=== PATIENT | female | born 1990 | race Caucasian/White ===

== ENCOUNTER 2021-12-31 03:15 | Inpatient (IN) ==
[2021-12-31] MEDS ORDERED: OXYTOCIN 30 UNITS/500 ML BAG IV PRN ×3 (03:46→11:08)
[2021-12-31 04:05] LABS: Hematocrit (blood only) 34.4 % (34.1-44.9); Hemoglobin 11.4 g/dl (12.0-16.0); Mean Corpuscular Hemoglobin 27.5 pg (25.0-34.0); Mean Corpuscular Hgb Conc 33.1 g/dL (32.0-36.0); Mean Corpuscular Volume 82.9 fL (80.0-100.0); Mean Platelet Volume 9.5 fL (9.4-12.3); Platelet Count 259 K/uL (130-400); RDW Standard Deviation 41.8 fL (36.4-46.3); Red Blood Count 4.15 M/uL (3.93-5.22); White Blood Count 10.12 K/ul (4.8-10.8)
--- NOTE | 2021-12-31 04:20 | History & Physical Report ---
Date of Service December 31, 2021 Assessment & Plan (1) Encounter for supervision of normal intrauterine in primigravida, antepartum: Plan: Admit to L&D, EFM/toco. Labs/COVID swab. She would prefer to ambulate to see if ctx/labor picks up. Agreeable to pitocin if no labor by 8:30a. Glucose on admission, then Q1h while in active labor. Admission and Anticipated Discharge Date Admission Date: December 31, 2021 History of Present Illness Chief Complaint: labor Primary Care Provider: NO PCP 31yo @ 38 0, presents after ROM for clear fluid at 2:30a. Occ ctx. +FM, no vaginal bleeding. with J&J COVID vaccinegiven on 10/17/20 (+) COVID 05/18 GDM w/28wk glucola *Begin monthly AC Us's Hypothyroid *Check TFTs Q4wks Posterior placenta previa--> RESOLVED -No VB since 16wk -Rescan at 32wk RESOLVED at 34 weeks Allergies Allergy/AdvReac Type Severity Reaction Status Date / Time No Known Allergies Allergy Verified 12/27/21 09:12 Home Medications Medication Instructions Recorded Confirmed Type prenat.vits,juanito,flh-ebvi-genbm 1 tab PO DAILY 06/07/21 12/31/21 History acetone (urine) test (Ketone Urine #50 ea 11/09/21 12/27/21 Rx Test strips) blood sugar diagnostic (OneTouch #150 ea 11/09/21 12/27/21 Rx Verio test strips) blood-glucose meter (OneTouch #1 ea 11/09/21 12/27/21 Rx Verio Meter) lancets 33 gauge (OneTouch Delica #150 ea 11/09/21 12/27/21 Rx Lancets) ferrous sulfate 325 mg (65 mg 65 mg PO Q OTHER DAY 12/31/21 12/31/21 History iron) tablet (iron) levothyroxine 88 mcg tablet 75 mcg PO DAILY 12/31/21 12/31/21 History Patient History Medical History Bleeding in early Chicken pox Colon polyp Depression IBS (irritable bowel syndrome) Ovarian anomaly Fibroids Surgical History [place] teeth extracted Family History Grandmother (Maternal) Colorectal cancer Colonic polyp Grandfather (Paternal) Colorectal cancer Colonic polyp Mother Colonic polyp Hypertension Migraines Denies family history of Ovarian cancer Breast cancer Lung cancer Social History Smoking Status: Former smoker Hx Alcohol Use: No Hx Substance Use: No Preferred Language: [place] Citizen Communication Ability: Effective marital status: Single marital status details: Alfred Georges (40) [phone] Current Living Situation: Significant Other Current Living Situation Comment: FOB and 2 cats (FOB changing litter) current occupational status: employed current occupation: [employer] Feels Safe at Home: Yes Review of Systems All systems reviewed & are unremarkable except as noted in HPI & below Physical Exam Physical Exam: FHT Cat 1 [place] occasional SVE 390/-1 Grossly ruptured clear fluid, +nitrizine Constitutional: WD/WN, vitals as above Respiratory: normal respiratory effort, lungs clear to auscultation no respiratory distress Cardiovascular: Rate/Rhythm: regular rate and regular rhythm Gastrointestinal (Abdomen): Inspection/Auscultation: abdomen normal to inspection Percussion/Palpation: abdomen soft; abdomen nontender Gravid. No s/s chorio or abruption. Skin: no rashes, warm and dry Psychiatric: A+Ox3, euthymic affect Results & Data ([facility]) Vital Signs (Past 12 Hours) Vital Signs Temp Pulse Resp BP 12/31/21 03:33 37.4 C 85 18 130/75 Coding Level of Care Code None Diagnoses Encounter for supervision of normal intrauterine in primigravida, antepartum Z34.00
[2021-12-31] MEDS: LACTATED RINGER'S 1,000 ML IV PRN ×2 (06:00→07:01)
[2021-12-31] MEDS ORDERED: ePHEDrine sulfate 50 MG/ML AMP ONE (06:06)
[2021-12-31] MEDS ORDERED: SODIUM CHLORIDE 0.9% INJ 10 ML VIAL ONE (06:06)
[2021-12-31] MEDS ORDERED: fentaNYL citrate 100 MCG/2 ML VIAL ONE (06:06)
[2021-12-31] MEDS ORDERED: BUPIVACAINE 0.25% 30 ML VIAL ONE (06:06)
[2021-12-31] MEDS ORDERED: fentaNYL 2MCG/ML ROPIVACAINE 1.25MG/ML 100 ML BAG EPI ONE (06:07)
[2021-12-31] MEDS ORDERED: LIDOCAINE 2%/EPINEPHRINE 1:200,000 20 ML SDV ONE (06:07)
[2021-12-31] MEDS ORDERED: NALBUPHINE HCL INJ 10 MG/ML AMP IV PRN (06:24)
[2021-12-31] MEDS ORDERED: diphenhydrAMINE 50 MG/ML VIAL IV PRN (06:24)
[2021-12-31] MEDS ORDERED: NALOXONE HCL 0.4 MG/1 ML VIAL/CARP IV PRN (06:24)
[2021-12-31] MEDS ORDERED: ePHEDrine sulfate 50 MG/ML AMP IV PRN (06:24)
[2021-12-31] MEDS ORDERED: fentaNYL 2MCG/ML ROPIVACAINE 1.25MG/ML 100 ML BAG EPI PRN (06:24)
[2021-12-31] MEDS ORDERED: NALOXONE HCL 1 MG in SODIUM CHLORIDE 0.9% 1000ML 1,000 ML IV PRN (06:24)
[2021-12-31] MEDS ORDERED: ONDANSETRON INJ 2 MG/ML 2 ML VIAL IV PRN (06:24)
--- NOTE | 2021-12-31 06:26 | Anesthesiology Consultation ---
Date of Service December 31, 2021 Assessment & Plan Chart Review Chart Review: Patient NOT seen in Pre Admission Testing and Acceptable Risk for Labor Epidural Consults Requested none ASA ASA2 Proposed Anesthesia Anesthesia Type: Labor Epidural and CSE Risk / Benefits Reviewed With: PT / POA / Parent / Guardian, Accepts Plan and Informed Consent Obtained History Height/Weight Height: 5 ft 9 in Weight: 103.238 kg Allergies Allergy/AdvReac Type Severity Reaction Status Date / Time No Known Allergies Allergy Verified 12/27/21 09:12 Medications Home Medications Medication Instructions Recorded Confirmed Last Taken prenat.vits,juanito,ede-armt-yulxp 1 tab PO DAILY 06/07/21 12/31/21 12/30/21 23:00 acetone (urine) test (Ketone Urine #50 ea 11/09/21 12/27/21 Unknown Test strips) blood sugar diagnostic (OneTouch #150 ea 11/09/21 12/27/21 Unknown Verio test strips) blood-glucose meter (OneTouch #1 ea 11/09/21 12/27/21 Unknown Verio Meter) lancets 33 gauge (OneTouch Delica #150 ea 11/09/21 12/27/21 Unknown Lancets) ferrous sulfate 325 mg (65 mg 65 mg PO Q OTHER DAY 12/31/21 12/31/21 12/30/21 23:00 iron) tablet (iron) levothyroxine 88 mcg tablet 75 mcg PO DAILY 12/31/21 12/31/21 12/30/21 09:00 Active Medications Generic Name Dose Route Start Last Admin Trade Name Freq PRN Reason Stop Dose Admin Lactated Ringer's 1,000 mls @ 125 mls/hr 12/31/21 03:46 12/31/21 06:00 Lr IV 01/02/22 03:45 999 mls/hr .Q8H PRN Administration L&D Protocol Protocol NPO Date Last Intake of Fluids: 12/31/21 Time Last Intake of Fluids: 05:00 Date Last Intake of Solids: 12/30/21 Time Last Intake of Solids: 20:00 Past Medical History Medical History Colon polyp Depression Gestational diabetes mellitus (GDM) affecting , antepartum Hypothyroidism IBS (irritable bowel syndrome) Ovarian anomaly Fibroids Exercise / Class Metabolic Activity II 4-5 Yardwork/Stairs/Walk up hill Past Family History Family History Grandmother (Maternal) Colorectal cancer Colonic polyp Grandfather (Paternal) Colorectal cancer Colonic polyp Mother Colonic polyp Hypertension Migraines Denies family history of Ovarian cancer Breast cancer Lung cancer Past Surgical History Surgical History [place] teeth extracted Past Anesthesia History No Hx of Anesthesia Complications and No Family Hx of Anesthesia Complications History of PONV No Hx of PONV and No Hx of Motion Sickness Social History Smoking Status: Never smoker Hx Alcohol Use: No Hx Substance Use: No Review of Systems no chest pain or sob Physical Exam Vital Signs Last Vital Signs Temp 36.9 C 12/31/21 05:17 Pulse 88 12/31/21 06:23 Resp 18 12/31/21 05:17 BP 127/78 12/31/21 06:23 Pulse Ox 100 12/31/21 06:20 ENMT Mouth: no TMJ abnormality Thyromental Distance: > or= 3.5 Finger Breadths Mallampati Class: II Neck normal visual inspection Respiratory normal respiratory effort Auscultation: lungs clear to auscultation bilaterally Cardiovascular Rate/Rhythm: regular rate and regular rhythm Musculoskeletal Spine: normal cervical ROM Neurologic moves all extremities Psychiatric Orientation: alert and oriented x 3 Testing Laboratory Results 12/31/21 03:50 12/31/21 03:50
--- NOTE | 2021-12-31 08:57 | Labor Progress Brief Note ---
Date of Service December 31, 2021 Subjective Comfortable with epidural. FHT Cat 1 [place] Q 3 SVE 10/100/+1 Continue labor, will labor down until she feels urge to push. Assessment & Plan Admission and Anticipated Discharge Date Admission Date: December 31, 2021 Results & Data ([facility]) Vital Signs (Past 12 Hours) Vital Signs Temp Pulse Resp BP Pulse Ox Pulse Ox O2 Del Method 12/31/21 06:24 98 Room Air 12/31/21 07:10 37 C 18 12/31/21 08:50 91 H 98 12/31/21 08:45 88 98 12/31/21 08:40 98 H 97 12/31/21 08:37 102 H 101/63 12/31/21 08:35 94 H 97 12/31/21 08:30 88 99 12/31/21 08:25 91 H 100 12/31/21 08:22 93 H 98/55 L 12/31/21 08:20 92 H 96 12/31/21 08:15 97 H 98 12/31/21 08:10 16 12/31/21 08:10 37.4 C 89 16 97 12/31/21 08:08 92 H 110/55 L 12/31/21 08:05 91 H 96 12/31/21 08:00 97 H 97 12/31/21 07:55 89 97 12/31/21 07:50 88 98/57 L 96 12/31/21 07:47 86 95/53 L 12/31/21 07:45 89 97 12/31/21 07:44 83 95/50 L 12/31/21 07:42 87 100/56 L 12/31/21 07:40 94 H 99 12/31/21 07:39 93 H 107/60 12/31/21 07:35 86 98 12/31/21 07:36 88 119/58 L 12/31/21 07:32 84 101/57 L 12/31/21 07:30 95 H 18 99 12/31/21 07:29 85 89/50 L 12/31/21 07:25 82 96 12/31/21 07:26 89 91/53 L 12/31/21 07:24 96 H 90/53 L 12/31/21 07:20 84 96 12/31/21 07:21 85 91/50 L 12/31/21 07:18 83 103/59 L 12/31/21 07:15 80 98 12/31/21 07:14 86 95/56 L 12/31/21 07:11 76 94/52 L 12/31/21 07:10 37.0 C 91 H 18 98 12/31/21 07:08 83 97/56 L 12/31/21 07:05 85 100 12/31/21 07:06 85 97/53 L 12/31/21 07:02 84 99/55 L 12/31/21 07:00 85 99 12/31/21 06:59 83 104/57 L 12/31/21 06:56 80 99/58 L 12/31/21 06:55 81 98 12/31/21 06:54 79 102/60 12/31/21 06:50 83 104/59 L 98 12/31/21 06:48 79 100/57 L 12/31/21 06:45 100 12/31/21 06:45 81 12/31/21 06:45 83 99/58 L 12/31/21 06:40 88 108/60 96 12/31/21 06:35 91 H 97 12/31/21 06:30 85 96 12/31/21 06:25 88 100 12/31/21 06:23 88 127/78 12/31/21 06:20 87 100 12/31/21 05:17 18 12/31/21 05:17 36.9 C 18 12/31/21 03:33 37.4 C 85 18 130/75 Coding Level of Care Code None
--- NOTE | 2021-12-31 10:56 | Delivery Summary ---
Vaginal Delivery Summary Date of Service December 31, 2021 Vaginal Delivery Summary Vaginal Delivery Summary: Pre-delivery diagnoses: 31yo @ 38 0/7, spontaneous labor, GDMA1, hypothyroidism, h/o placenta previa (resolved) Post-delivery diagnoses: same Procedure: spontaneous vaginal delivery Surgeon: Roxi Brannon DO Complications: none Findings: Viable female . Apgars: 8/9. Weight pending, please see nursery records. Estimated blood loss: 300ml Description of delivery: The patient progressed to complete with epidural anesthesia. She then began to push. She spontaneously vaginally delivered a viable from the cephalic presentation. The head delivered in BIRGIT position. The anterior shoulder delivered, followed by the posterior shoulder, followed by the body. The baby was placed on mother's abdomen and a spontaneous cry was heard. Delayed cord clamping was employed, and the cord was doubly clamped and cut. Cord blood was obtained. The placenta was delivered spontaneously intact with a 3-vessel cord. The uterus and vagina were swept of clots and debris. IV pitocin was given. The uterus became firm. The cervix, vagina, and perineum were inspected and a 2nd degree laceration was noted and repaired in standard fashion with 3-0 vicryl. Excellent hemostasis was observed. The mother and baby are recovering in stable and good condition in the room. Sponge, needle and instrument counts were correct x 2. Roxi Brannon DO [facility]
[2021-12-31] MEDS ORDERED: HYDROCORTISONE ACETATE 25 MG SUPP PR PRN (11:08)
[2021-12-31] MEDS ORDERED: ACETAMINOPHEN 325 MG TAB PO PRN (11:08)
[2021-12-31] MEDS ORDERED: DIPHTHERIA/TETANUS/PERTUSSIS 0.5 ML SYR/VIAL IM ONE (11:08)
[2021-12-31] MEDS ORDERED: BENZOCAINE 20% AER SPR 82.5 GM CAN EXT PRN (11:08)
[2021-12-31] MEDS ORDERED: bisacodyL 10 MG SUPP PR PRN (11:08)
[2021-12-31] MEDS ORDERED: oxyCODONE/ACETAMINOPHEN 5mg/325mg TAB PO PRN (11:08)
--- NOTE | 2021-12-31 11:12 | Anesthesiology Progress Note ---
Date of Service December 31, 2021 Anesthesia Post Procedure Vital Signs Vital Signs: Temp Pulse Resp BP Pulse Ox Pulse Ox O2 Del Method 12/31/21 06:24 98 Room Air 12/31/21 07:10 98.6 F 18 12/31/21 11:10 92 H 97 12/31/21 11:05 89 97 12/31/21 11:03 94 H 119/57 L 12/31/21 11:00 92 H 99 12/31/21 10:55 100 H 98 12/31/21 10:50 90 98 12/31/21 10:47 99 H 117/59 L 12/31/21 10:45 93 H 98 12/31/21 10:40 91 H 98 12/31/21 10:37 118/62 12/31/21 10:35 99 H 98 12/31/21 10:30 102 H 99 12/31/21 10:25 123 H 98 12/31/21 10:22 112 H 119/69 12/31/21 10:20 106 H 100 12/31/21 10:15 108 H 100 12/31/21 10:10 85 98 12/31/21 10:09 88 121/69 12/31/21 10:05 85 98 12/31/21 10:00 85 98 12/31/21 09:55 97 H 97 12/31/21 09:52 96 H 112/61 12/31/21 09:50 102 H 96 12/31/21 09:45 96 H 97 12/31/21 09:40 102 H 95 12/31/21 09:37 105 H 92/55 L 12/31/21 09:35 93 H 96 12/31/21 09:30 94 H 96 12/31/21 09:25 95 H 95 12/31/21 09:22 107 H 109/64 12/31/21 09:20 96 H 96 12/31/21 09:15 87 97 12/31/21 09:10 99.3 F 105 H 18 97 12/31/21 09:08 90 111/64 12/31/21 09:05 91 H 96 12/31/21 09:00 99 H 97 12/31/21 08:55 103 H 97 12/31/21 08:54 96 H 109/70 12/31/21 08:50 91 H 98 12/31/21 08:45 88 98 08/07/22 08:40 98 H 97 12/31/21 08:37 102 H 101/63 12/31/21 08:35 94 H 97 12/31/21 08:30 88 99 12/31/21 08:25 91 H 100 12/31/21 08:22 93 H 98/55 L 12/31/21 08:20 92 H 96 12/31/21 08:15 97 H 98 12/31/21 08:10 16 12/31/21 08:10 99.3 F 89 16 97 12/31/21 08:08 92 H 110/55 L 12/31/21 08:05 91 H 96 12/31/21 08:00 97 H 97 12/31/21 07:55 89 97 12/31/21 07:50 88 98/57 L 96 12/31/21 07:47 86 95/53 L 12/31/21 07:45 89 97 12/31/21 07:44 83 95/50 L 12/31/21 07:42 87 100/56 L 12/31/21 07:40 94 H 99 12/31/21 07:39 93 H 107/60 12/31/21 07:35 86 98 12/31/21 07:36 88 119/58 L 12/31/21 07:32 84 101/57 L 12/31/21 07:30 95 H 18 99 12/31/21 07:29 85 89/50 L 12/31/21 07:25 82 96 12/31/21 07:26 89 91/53 L 12/31/21 07:24 96 H 90/53 L 12/31/21 07:20 84 96 12/31/21 07:21 85 91/50 L 12/31/21 07:18 83 103/59 L 12/31/21 07:15 80 98 12/31/21 07:14 86 95/56 L 12/31/21 07:11 76 94/52 L 12/31/21 07:10 98.6 F 91 H 18 98 12/31/21 07:08 83 97/56 L 12/31/21 07:05 85 100 12/31/21 07:06 85 97/53 L 12/31/21 07:02 84 99/55 L 12/31/21 07:00 85 99 12/31/21 06:59 83 104/57 L 12/31/21 06:56 80 99/58 L 12/31/21 06:55 81 98 12/31/21 06:54 79 102/60 12/31/21 06:50 83 104/59 L 98 12/31/21 06:48 79 100/57 L 12/31/21 06:45 100 12/31/21 06:45 81 12/31/21 06:45 83 99/58 L 12/31/21 06:40 88 108/60 96 12/31/21 06:35 91 H 97 12/31/21 06:30 85 96 12/31/21 06:25 88 100 12/31/21 06:23 88 127/78 12/31/21 06:20 87 100 12/31/21 05:17 18 12/31/21 05:17 98.4 F 18 12/31/21 03:33 99.3 F 85 18 130/75 Transfer of Care Handoff Completed per policy Notes Mental Status: alert / awake / arousable and participated in evaluation Patient Amnestic to Procedure: Yes Nausea / Vomiting: adequately controlled Pain: adequately controlled Airway Patency, RR, SpO2: stable & adequate BP & HR: stable & adequate Hydration State: stable & adequate Neuraxial Anesthesia: was administered and sensory block is resolving Anesthetic Complications: no major complications apparent and Pt Satisfied with anesthetic care
[2021-12-31] MEDS: LEVOTHYROXINE SODIUM 75 MCG TABLET PO SCH (12:53)
[2021-12-31] MEDS: DOCUSATE SODIUM 100 MG CAP PO SCH (21:30)
[2021-12-31] MEDS: IBUPROFEN 600 MG TAB PO PRN (21:30)
[2022-01-01] MEDS: IBUPROFEN 600 MG TAB PO PRN ×3 (04:15→23:30)
[2022-01-01 06:26] LABS: Hemoglobin 10.9 g/dl (12.0-16.0)
[2022-01-01] MEDS: LEVOTHYROXINE SODIUM 75 MCG TABLET PO SCH (06:31)
--- NOTE | 2022-01-01 06:47 | Obstetrical Progress Note ---
Date of Service <Pia Andino - Last Filed: 01/01/22 06:57> January 01, 2022 Assessment & Plan <Pia Andino DO - Last Filed: 01/01/22 06:57> (1) Gestational diabetes mellitus (GDM) affecting , antepartum: (2) Encounter for supervision of normal intrauterine in primigravida, antepartum: (3) Hypothyroidism during : Plan Vital signs reviewed and WNL. (Tmax at 37.4) Hemoglobin reviewed. 11.4 (on 12/31) Blood type: O+, GBS neg, Rubella immune. Patient is doing well clinically. Encourage ambulation, monitor and control pain with motrin PRN, continue regular diet. Monitor lochia Encourage . <Roxi Brannon, - Last Filed: 01/01/22 07:33> (1) Gestational diabetes mellitus (GDM) affecting , antepartum: (2) Encounter for supervision of normal intrauterine in primigravida, antepartum: (3) Hypothyroidism during : Subjective <Pia Frankie Andino - Last Filed: 01/01/22 06:57> Racquel Dillard is a 31 y/o female who is now PPD #1 following at 38 0/7 weeks. Patient was seen and examined at bedside, denies any overnight events but states she did not sleep much. Reports feeling well overall this morning. States her pain is currently 3/10 and has been well managed on analgesics. Admits to some lower back pain at site of her epidural. Has been voiding without burning or pain. Has been tolerating meals well and is able to ambulate some. Has passed gas but has not had a bowel movement yet. Has persistent lochia, noted some clots yesterday but states that has improved today. Has been . Review of Systems Denies fever, chills, sweats. Denies shortness of breath, difficulty breathing, chest pain. Denies breast pain or discharge. Denies dysuria. Denies headache. Physical Exam <Pia Andino - Last Filed: 01/01/22 06:57> General: Alert, oriented. No acute distress. Cardiac: Regular rate and rhythm, no murmurs/rubs/gallops. Respiratory: Clear to auscultation bilaterally, no wheezes/rales/rhonchi, no increased work of breathing. Abdomen: Soft, nontender, nondistended. Bowel sounds present. Uterus: Uterine fundus firm, palpable. Lower Extremities: No lower extremity edema or swelling. No deep calf pain. Geo's negative bilaterally. Results & Data ([facility]) <Pia Andino DO - Last Filed: 01/01/22 06:57> Vital Signs (Past 12 Hours) Vital Signs Temp Pulse Resp BP Pulse Ox O2 Del Method 01/01/22 04:30 36.5 C 75 16 109/74 98 Room Air 12/31/21 23:30 36.5 C 72 16 111/73 97 Room Air 12/31/21 20:05 36.8 C 83 18 107/71 97 Room Air <Roxi Brannon, - Last Filed: 01/01/22 07:33> Co-Signing Physician Notes Resident Physician Supervision Note: I was present with Dr. Andino during the history and exam. I discussed the case with the resident and agree with the findings and plan as documented in the note. Any exceptions or clarifications are listed here: PPD#1 doing well. Continue routine care. Documented By: Roxi Brannon DO Resident Activity Tracking <Pia Andino DO - Last Filed: 01/01/22 06:57> Resident Involvement: Resident Care Provided Care Provided: OB Delivery
[2022-01-01] MEDS: PRENATAL VITAMIN 1 TAB PO SCH (07:59)
[2022-01-01] MEDS: DOCUSATE SODIUM 100 MG CAP PO SCH ×2 (07:59→21:07)
[2022-01-01] MEDS ORDERED: bisacodyL 5 MG TABEC PO SCH (20:00)
--- NOTE | 2022-01-02 05:29 | Obstetrical Progress Note ---
Date of Service <Pia Andino DO - Last Filed: 01/02/22 07:27> January 02, 2022 Assessment & Plan <Pia Andino DO - Last Filed: 01/02/22 07:27> (1) Hypothyroidism during : (2) Gestational diabetes mellitus (GDM) affecting , antepartum: (3) Encounter for supervision of normal intrauterine in primigravida, antepartum: Plan s/p PPD 2 -Vital signs reviewed and WNL (Tmax at 37.4) -Hemoglobin reviewed, 10.9 (yesterday 01/01) -Blood type:O+, GBS-, Rubella immune -Patient is doing well clinically -Encourage ambulation, monitor and treat pain with motrin PRN, monitor lochia. -Patient counselled on discharge instructions <Mimi Batista MD - Last Filed: 01/02/22 08:48> (1) Hypothyroidism during : (2) Gestational diabetes mellitus (GDM) affecting , antepartum: (3) Encounter for supervision of normal intrauterine in primigravida, antepartum: Subjective <Pia Andino DO - Last Filed: 01/02/22 07:27> Racquel is a 31 y/o female who is PPD #2 following delivery at 38 0/7 weeks. Patient seen and examined at bedside. She reports feeling well overall this morning. Admits to lower back discomfort & 3/10 pain well managed on analgesics. Voiding without issue. Tolerating meals overnight and able to ambulate some. Has been passing gas but no bowel movements yet. Has some persistent lochia with some improvement this morning. Currently breast feeding and pumping. Constitutional: no fever, no chills or no sweats Respiratory: no cough, no dyspnea or no wheezing Cardiovascular: no chest pain, no palpitations or no calf pain Breast: no breast pain Genitourinary (female): no dysuria Neurologic: no headache(s) Physical Exam <Pia Andino DO - Last Filed: 01/02/22 07:27> Constitutional WD/WN, vitals as above no acute distress Respiratory no respiratory distress Auscultation: lungs clear to auscultation bilaterally; no rales, no rhonchi and no wheezes Cardiovascular RRR, no murmur, no edema Extremities: no calf tenderness and no edema Negative Geo's sign bilaterally. Gastrointestinal (Abdomen) Inspection/Auscultation: normal bowel sounds Genitourinary Uterine fundus firm, palpable below the umbilicus. Results & Data ([facility]) <Pia Andino DO - Last Filed: 01/02/22 07:27> Vital Signs (Past 12 Hours) Vital Signs Temp Pulse Resp BP Pulse Ox O2 Del Method 01/02/22 03:38 36.8 C 66 16 108/73 96 Room Air 01/01/22 22:58 36.9 C 73 16 103/67 98 Room Air 01/01/22 20:00 36.6 C 98 H 18 117/71 96 Room Air <Mimi Batista MD - Last Filed: 01/02/22 08:48> Co-Signing Physician Notes Resident Physician Supervision Note: I interviewed and examined the patient. Discussed with Dr. Andino and agree with findings and plan as documented in the note. Any exceptions or clarifications are listed here: PP2 s/p , doing well. Stable for d/c home today Documented By: Mimi Batista MD Resident Activity Tracking <Pia Andino DO - Last Filed: 01/02/22 07:27> Resident Involvement: Resident Care Provided Care Provided: OB Delivery
[2022-01-02] MEDS: LEVOTHYROXINE SODIUM 75 MCG TABLET PO SCH (06:20)
[2022-01-02] MEDS: PRENATAL VITAMIN 1 TAB PO SCH (08:22)
[2022-01-02] MEDS: IBUPROFEN 600 MG TAB PO PRN (08:22)
[2022-01-02] MEDS: DOCUSATE SODIUM 100 MG CAP PO SCH (08:22)
== END 2022-01-02 16:37 | disposition home or self-care (01) | DRG 807 ==
LOC: OPB 03:15 → 4S1 03:16 → 4E2 13:08
DX: O70.1 Second degree perineal laceration during delivery; O99.284 Endocrine, nutritional and metabolic diseases complicating childbirth; Z3A.38 38 weeks gestation of pregnancy; Z37.0 Single live birth; O24.429 Gestational diabetes mellitus in childbirth, unspecified control; E03.9 Hypothyroidism, unspecified

== ENCOUNTER 2025-02-05 07:47 | Inpatient (IN) ==
[2025-02-05] MEDS ORDERED: OXYTOCIN 30 UNITS/NSS 30 UNITS/500 ML BAG IV PRN ×2 (07:54→15:02)
[2025-02-05] MEDS ORDERED: LIDOCAINE 1% LOCAL 20 ML VIAL INFIL PRN (07:54)
[2025-02-05 08:44] LABS: Hematocrit (blood only) 34.0 % (37.0-47.0); Hemoglobin 11.4 g/dl (12.0-16.0); Mean Corpuscular Hemoglobin 27.1 pg (25.0-34.0); Mean Corpuscular Volume 81.0 fL (80.0-100.0); Platelet Count 231 K/uL (130-400); RDW Standard Deviation 40.7 fL (36.4-46.3); Red Blood Count 4.20 M/uL (4.20-5.40); White Blood Count 8.01 K/ul (4.8-10.8)
[2025-02-05] MEDS: LACTATED RINGER'S 1,000 ML IV PRN (09:00)
--- NOTE | 2025-02-05 09:16 | History & Physical Report ---
Date of Service February 05, 2025 Assessment & Plan (1) Insulin controlled gestational diabetes mellitus (GDM) during : (2) Supervision of normal intrauterine in multigravida: Plan Admit to L&D. EFM/toco. Labs, IV. OK for epidural when she desires. Hourly blood glucose checks. Admission and Anticipated Discharge Date Admission Date: February 05, 2025 History of Present Illness Chief Complaint: induction of labor Primary Care Provider: SIRI Zheng 34yo @ 40 0, here for IOL. and Delivery Plans Low lying placenta - RESOLVED 10/16/24 GDM on insulin *Wkly NSTs @32wks and Twice wkly @36wks *Growth US Q 4wks @ 24wks *Deliver by EDC 02/05/25 Hypothyroid *Check TFTs Q4wks Allergies Allergy/AdvReac Type Severity Reaction Status Date / Time No Known Allergies Allergy Verified 02/04/25 13:07 Home Medications Medication Instructions Recorded Confirmed Type acetone (urine) test (Ketone Urine #50 ea 07/13/24 02/04/25 Rx Test strips) levothyroxine 75 mcg tablet 75 mcg PO DAILYBB 08/22/24 02/05/25 History vit no.95-ferrous 1 tab PO HS 08/22/24 02/05/25 History fumarate 28 mg-folic acid 800 mcg tablet () pen needle, diabetic 32 gauge x #100 ea 09/18/24 02/04/25 Rx " blood sugar diagnostic (Accu-Chek #150 ea 12/21/24 02/04/25 Rx Guide test strips) lancets (Accu-Chek Softclix #100 ea 12/21/24 02/04/25 Rx Lancets) insulin NPH isoph U-100 human 100 26 unit subcut HS 01/04/25 02/05/25 History unit/mL (3 mL) subcutaneous pen (Novolin N FlexPen) blood-glucose meter (Accu-Chek #1 ea 01/19/25 02/04/25 Rx Guide Glucose Meter) Patient History Medical History History of gestational diabetes Ovarian anomaly Fibroids Depression IBS (irritable bowel syndrome) Colon polyp Surgical History [place] teeth extracted Family History Grandmother (Maternal) Colorectal cancer Colonic polyp Grandfather (Paternal) Colorectal cancer Colonic polyp Mother Colonic polyp Hypertension Migraines Father Heart disease Denies family history of Ovarian cancer Prostate cancer Breast cancer Lung cancer Social History Smoking Status: Never smoker Tobacco Type: Cigarettes Second Hand Exposure: No; Do You Dip or Chew Tobacco: No; Hx Alcohol Use: No Hx Substance Use: No Preferred Language: [place] Communication Ability: Effective Moss Bleacher Required: No Beliefs That Will Affect Care: None marital status: Single marital status details: Alfred Georges (43) [phone] Current Living Situation: Spouse Current Living Situation Comment: FOB and daughter 2 cats (FOB changing litter) current occupational status: employed current occupation: [employer] Other Information That Helps Us Care for You: No Feels Safe at Home: Yes Safety Concerns: Feels Safe At This Time caffeine: Yes Dental Care, Regularly: Yes Physical Activity Frequency: 3-4 Times per Week Seatbelt Use: always Sunscreen Use: Yes Assistive Devices: None Review of Systems All systems reviewed & are unremarkable except as noted in HPI & below Physical Exam Physical Exam: FHT Cat 1 [place] none SVE 3-4/80/-1 Constitutional: WD/WN, vitals as above Respiratory: normal respiratory effort, lungs clear to auscultation no respiratory distress Cardiovascular: Rate/Rhythm: regular rate and regular rhythm Gastrointestinal (Abdomen): Inspection/Auscultation: abdomen normal to inspection Percussion/Palpation: abdomen soft; abdomen nontender Gravid. No s/s chorio or abruption. Skin: no rashes, warm and dry Psychiatric: A+Ox3, euthymic affect Results & Data Vital Signs (Past 12 Hours) Vital Signs Temp Pulse Resp BP 02/05/25 08:12 36.9 C 20 02/05/25 08:07 93 H 115/70 Coding Level of Care Code None Diagnoses Insulin controlled gestational diabetes mellitus (GDM) during O24.414 Supervision of normal intrauterine in multigravida Z34.80
[2025-02-05] MEDS: OXYTOCIN 30 UNITS/NSS 30 UNITS/500 ML BAG IV PRN (09:41)
[2025-02-05] MEDS ORDERED: LIDOCAINE 2% MPF LOCAL 5 ML VIAL EPI PRN (12:46)
[2025-02-05] MEDS ORDERED: ONDANSETRON INJ 2 MG/ML 2 ML VIAL IV PRN (12:46)
[2025-02-05] MEDS ORDERED: NALOXONE HCL 1 MG in SODIUM CHLORIDE 0.9% 1,000 ML IV PRN (12:46)
[2025-02-05] MEDS ORDERED: SODIUM CHLORIDE 0.9% PF INJ 10 ML VIAL EPI PRN (12:46)
[2025-02-05] MEDS ORDERED: BUPIVACAINE 0.25% PF 30 ML VIAL EPI PRN (12:46)
[2025-02-05] MEDS ORDERED: NALBUPHINE HCL INJ 10 MG/ML AMP IV PRN (12:46)
[2025-02-05] MEDS ORDERED: NALOXONE HCL 0.4 MG/1 ML VIAL/CARP IV PRN (12:46)
[2025-02-05] MEDS ORDERED: ROPIVACAINE 0.5% PF 5 MG/ML 20 ML VIAL EPI PRN (12:46)
[2025-02-05] MEDS ORDERED: diphenhydrAMINE 50 MG/ML VIAL IV PRN (12:46)
--- NOTE | 2025-02-05 12:48 | Anesthesiology Consultation ---
Date of Service February 05, 2025 Assessment & Plan ASA ASA3 Proposed Anesthesia Anesthesia Type: Labor Epidural Risk / Benefits Reviewed With: PT / POA / Parent / Guardian, Accepts Plan and Informed Consent Obtained History Height/Weight Height: 5 ft 9 in Weight: 102.512 kg Allergies Allergy/AdvReac Type Severity Reaction Status Date / Time No Known Allergies Allergy Verified 02/04/25 13:07 Medications Home Medications Medication Instructions Recorded Confirmed Last Taken acetone (urine) test (Ketone Urine #50 ea 07/13/24 02/04/25 Unknown Test strips) levothyroxine 75 mcg tablet 75 mcg PO DAILYBB 08/22/24 02/05/25 02/05/25 vit no.95-ferrous 1 tab PO HS 08/22/24 02/05/25 02/04/25 fumarate 28 mg-folic acid 800 mcg tablet () pen needle, diabetic 32 gauge x #100 ea 09/18/24 02/04/25 Unknown " blood sugar diagnostic (Accu-Chek #150 ea 12/21/24 02/04/25 Unknown Guide test strips) lancets (Accu-Chek Softclix #100 ea 12/21/24 02/04/25 Unknown Lancets) insulin NPH isoph U-100 human 100 26 unit subcut HS 01/04/25 02/05/25 02/04/25 unit/mL (3 mL) subcutaneous pen (Novolin N FlexPen) blood-glucose meter (Accu-Chek #1 ea 01/19/25 02/04/25 Unknown Guide Glucose Meter) Active Medications Generic Name Dose Route Start Last Admin Trade Name Clara PRN Reason Stop Dose Admin Fentanyl/Bupivacaine/Sodium Chlor 100 ml 02/05/25 12:46 02/05/25 13:04 Fentanyl 2 Mcg/Ml Bupivacaine 0.125%-Nss 100ml Bag EPI 02/06/25 12:45 100 ml PRN PRN Administration Pain R/T Labor Protocol Oxytocin 30 units in 500 mls @ 3 mls/hr 02/05/25 07:54 02/05/25 13:35 Pitocin 30 Units/Nss IV 02/07/25 07:53 0.18 units/hr .Q24H PRN 3 mls/hr Labor Induction/Augmentation Titration Protocol 0.18 UNITS/HR Lactated Ringer's 1,000 mls @ 125 mls/hr 02/05/25 07:54 02/05/25 12:58 Lr IV 02/07/25 07:53 125 mls/hr .Q8H PRN Administration L&D Protocol Protocol Past Medical History Medical History History of gestational diabetes Ovarian anomaly Fibroids Depression IBS (irritable bowel syndrome) Colon polyp Exercise / Class Metabolic Activity II 4-5 Yardwork/Stairs/Walk up hill Past Family History Family History Grandmother (Maternal) Colorectal cancer Colonic polyp Grandfather (Paternal) Colorectal cancer Colonic polyp Mother Colonic polyp Hypertension Migraines Father Heart disease Denies family history of Ovarian cancer Prostate cancer Breast cancer Lung cancer Past Surgical History Surgical History [place] teeth extracted Past Anesthesia History No Hx of Anesthesia Complications and No Family Hx of Anesthesia Complications History of PONV No Hx of PONV and No Hx of Motion Sickness Social History Smoking Status: Never smoker Do You Dip or Chew Tobacco: No Hx Alcohol Use: No Hx Substance Use: No substance use type: does not use Review of Systems denies fever/cough/ colds/ chest pain/ SOB/ DAJA denies DAJA Physical Exam Vital Signs Last Vital Signs Temp 36.8 C 02/05/25 13:20 Pulse 80 02/05/25 13:40 Resp 16 02/05/25 13:23 BP 126/60 02/05/25 13:40 Pulse Ox 99 02/05/25 13:38 ENMT Mouth: no TMJ abnormality and no dentition abnormality Thyromental Distance: > or= 3.5 Finger Breadths Mallampati Class: II Neck neck extension not limited Respiratory normal respiratory effort; no respiratory distress Auscultation: lungs clear to auscultation bilaterally Cardiovascular Rate/Rhythm: regular rate and regular rhythm Neurologic moves all extremities Psychiatric Orientation: alert and oriented x 3 Testing Laboratory Results 02/05/25 08:28 02/05/25 02/05/25 02/05/25 12:07 11:04 10:03 POC Glucose 72 83 83 02/05/25 09:04 POC Glucose 90
[2025-02-05] MEDS: fentANYL 2 MCG/ML BUPIVacaine 0.125%-NSS 100ML BAG EPI PRN (13:04)
[2025-02-05] MEDS: LIDOCAINE 2%/EPINEPHRINE 1:200,000 20 ML PF EPI STA (13:04)
[2025-02-05] MEDS: BUPIVACAINE 0.25% PF 30 ML VIAL EPI STA (13:11)
[2025-02-05] MEDS: fentANYL 2 MCG/ML BUPIVacaine 0.125%-NSS 100ML BAG ONE (13:34)
[2025-02-05] MEDS: BUPIVACAINE 0.25% PF 30 ML VIAL ONE (13:34)
[2025-02-05] MEDS: SODIUM CHLORIDE 0.9% PF INJ 10 ML VIAL ONE (13:35)
[2025-02-05] MEDS: LIDOCAINE 2%/EPINEPHRINE 1:200,000 20 ML PF ONE (13:35)
[2025-02-05] MEDS ORDERED: HYDROCORTISONE ACETATE 25 MG SUPP PR PRN (15:02)
[2025-02-05] MEDS ORDERED: IBUPROFEN 600 MG TAB PO PRN (15:02)
--- NOTE | 2025-02-05 15:06 | Delivery Summary ---
Vaginal Delivery Summary Date of Service February 05, 2025 Vaginal Delivery Summary and 2nd Degree LAC Patient progressed to 10 cm dilated, 100% effaced, +2 station pressure intact perineum with epidural anesthesia and delivery of viable female with weight and Apgars pending. Patient pushed for approximately 2 contractions to achieve delivery. Head of the delivered without difficulty quickly followed by shoulders and body. was noted to be vigorous upon delivery and a 1 minute delayed cord clamping was initiated. Cord was then double clamped and cut remained on maternal abdomen. Cord blood obtained. Attention turned to deliver the placenta was delivered intact with three-vessel cord with gentle cord traction. Inspection of perineum vagina and cervix there is noted to be a second-degree perineal laceration which was repaired with 3-0 Vicryl in the traditional crown stitch. Needle sponge and instrument counts were correct at the completion of the case. Both mother and stable in the immediate postdelivery timeframe. No complications noted and blood loss per QBL. [facility] Vaginal Delivery Charge Delivery Type Details: and 2nd Degree LAC
[2025-02-05] MEDS: DIPHTHER/TETAN/PERTUS Vaccine (Tdap, Adol/Adult) 0.5mL IM ONE (15:13)
[2025-02-05] MEDS: SODIUM CHLORIDE 0.9% PF INJ 10 ML VIAL EPI STA (15:13)
--- NOTE | 2025-02-05 16:03 | Anesthesia Procedure Note ---
Date of Service February 05, 2025 Anesthesia Post Epidural Note Vital Signs Vital Signs: Temp Pulse Resp BP Pulse Ox 36.8 C 81 20 135/66 100 02/05/25 13:20 02/05/25 16:00 02/05/25 14:45 02/05/25 16:00 02/05/25 15:13 Notes Mental Status: alert / awake / arousable and participated in evaluation Nausea / Vomiting: adequately controlled Pain: adequately controlled Airway Patency, RR, SpO2: stable & adequate BP & HR: stable & adequate Hydration State: stable & adequate Neuraxial Anesthesia: was administered and sensory block resolved Anesthetic Complications: no major complications apparent and Pt Satisfied with anesthetic care Epidural: Removed without complications and With tip intact
[2025-02-05] MEDS: BENZOCAINE 20% SPRY 85 APPLN/85 GM CAN EXT PRN (18:17)
[2025-02-05] MEDS: DOCUSATE SODIUM 100 MG CAP PO SCH (20:24)
[2025-02-05 23:47] VITALS: O2SAT 97
[2025-02-06] MEDS: LEVOTHYROXINE SODIUM 75 MCG TABLET PO SCH (06:24)
[2025-02-06 06:58] LABS: Hematocrit (blood only) 33.9 % (37.0-47.0); Hemoglobin 11.4 g/dl (12.0-16.0)
--- NOTE | 2025-02-06 07:40 | Obstetrical Progress Note ---
Date of Service February 06, 2025 Assessment & Plan (1) care and examination: PPD#1 doing well. Desires DC home. Reviewed instructions, 6w followup in office. Subjective Ambulation: ambulating normally Voiding: no voiding problems Diet Tolerance:: regular diet Lochia:: Moderate Review of Systems All systems reviewed & are unremarkable except as noted in HPI & below Physical Exam Constitutional WD/WN, vitals as above no acute distress Respiratory normal respiratory effort Cardiovascular Rate/Rhythm: regular rate and regular rhythm Gastrointestinal (Abdomen) Inspection/Auscultation: abdomen normal to inspection; abdomen not distended Percussion/Palpation: abdomen soft Genitourinary OB Exam Abdomen: + fundal height Fundus: + firm; not tender Results & Data Vital Signs (Past 12 Hours) Vital Signs Temp Pulse Resp BP Pulse Ox O2 Del Method 02/06/25 03:00 36.7 C 72 16 109/80 97 Room Air 02/05/25 23:45 36.9 C 72 16 103/68 97 Room Air 02/05/25 20:00 Room Air 02/05/25 20:00 36.9 C 90 18 120/71 96 Room Air
[2025-02-06] MEDS: ACETAMINOPHEN 325 MG TAB PO PRN (08:35)
[2025-02-06] MEDS: FERROUS SULFATE 325 MG TAB PO SCH (08:36)
[2025-02-06] MEDS: PRENATAL VITAMIN 1 TAB PO SCH (08:36)
[2025-02-06 09:12] VITALS: RESP 18
[2025-02-06 16:21] VITALS: BP 105/71; PULSE 80; TEMP 97.9
== END 2025-02-06 16:40 | disposition home or self-care (01) | DRG 807 ==
LOC: 4S1 07:47 → 4E2 18:30